=== PATIENT | female | born 1965 | race Caucasian/White ===

== ENCOUNTER 2020-10-01 15:35 | Outpatient (CLI) | payer OTHER, SELFPAY | END 2020-10-01 15:36 | disposition home or self-care (01) | LOC: ANHCOVIDVC 15:35 | PROVIDERS: PCP Family Medicine | DX: Z23 Encounter for immunization (principal) | CPT/HCPCS: 0001A; 91300 ==

== ENCOUNTER 2020-10-22 15:13 | Outpatient (CLI) | payer OTHER, SELFPAY | END 2020-10-22 15:14 | disposition home or self-care (01) | LOC: ANHCOVIDVC 15:13 | PROVIDERS: PCP Family Medicine | DX: Z23 Encounter for immunization (principal) | CPT/HCPCS: 0002A; 91300 ==

== ENCOUNTER → 2020-11-15 02:21 | Outpatient (CLI) | payer OTHER, SELFPAY ==
[2020-11-15 19:11] LABS: SARS-CoV-2 RNA PCR Negative
== END ==
PROVIDERS: PCP Family Medicine; Visit Provider Internal Medicine Gastroenterology
DX: Z01.812 Encounter for preprocedural laboratory examination (principal); Z20.822 Contact with and (suspected) exposure to COVID-19
CPT/HCPCS: C9803; U0003; U0005

== ENCOUNTER 2020-11-18 02:01 | Day surgery (SDC) | payer OTHER, SELFPAY ==
[2020-11-06 13:56] VITALS: BMI 25.3
[2020-11-18 10:11] VITALS: BP 127/87; PULSE 89; RESP 20; TEMP 36.2; O2SAT 100; BMI 25.4
[2020-11-18] MEDS: LACTATED RINGERS 1,000 ML 150 ML IV CONT (10:26)
--- NOTE | 2020-11-18 10:39 | WPDANESEPPF ---
Anes - Initial Pre Proc Eval Procedure: Operation Date: 11/18/20 11:30 Proposed Procedures p Screening Colonoscopy - Antonio Hernandes MD Date/Time: 11/18/20 10:39 Surgeon: Antonio Hernandes MD Pre Op Diagnosis: neoplasm screening Patient Data Age: 55 Gender: F Height: 5 ft 4 in Weight: 67.3 kg Last Vital Signs Temp 36.2 C L 11/18/20 10:11 Pulse 89 11/18/20 10:11 Resp 20 11/18/20 10:11 BP 127/87 11/18/20 10:11 Pulse Ox 100 11/18/20 10:11 Allergies Allergy/AdvReac Type Severity Reaction Status Date / Time metronidazole Allergy Unknown Vomiting Verified 11/18/20 10:23 Penicillins Allergy Rash Verified 11/18/20 10:23 Home Medications Medication Instructions Recorded Confirmed Type bupropion HCl 150 mg PO DAILY 11/06/20 11/06/20 History indapamide 1.25 mg PO HS 11/06/20 11/06/20 History lactobacillus combination no.4 3,000 mmu cells PO DAILY 11/06/20 11/06/20 History [Probiotic] magnesium 500 mg PO DAILY 11/06/20 11/06/20 History metoprolol succinate 200 mg PO DAILY 11/06/20 11/06/20 History omega 3-nof-zty-fish oil [Fish Oil] 2 cap PO DAILY 11/06/20 11/06/20 History rosuvastatin 20 mg PO HS 11/06/20 11/06/20 History Patient hx anesthesia problems: none Family hx anesthesia problems: none PMFSH Past Medical History Medical History Anxiety Chronic bronchitis Hyperlipidemia Hypertension Tobacco abuse Social History Social History Smoking packs per day: 0.5 Smoking cigarettes per day: 10.0 Years smoked: 38 Smoking pack-years: 19.00 Smoking status: Current every day smoker Tobacco type: cigarettes and e-cigarettes/vaping Alcohol intake: current Drinks per week: 80 Alcohol use details: beer Living arrangements: with friend(s) Spiritual care concerns: No Anes - Eval Final PreProcedure Day of Procedure 11/18/20 10:39 Patient weight: normal Heart: regular rate and rhythm Lungs: decreased breath sounds Airway: Mallampati scale class II Neurological: alert and oriented Last oral intake: >/= 8 hours ASA classification: III Emergent: no Anesthetic plan: proceed Anesthesia type and monitoring: general GIVS and standard monitoring Informed Consent: The patient's anesthetic plan and its attendant risks and benefits were discussed with the patient/family/POA. Questions were solicited and answers provided to the satisfaction of the patient/family/POA.
--- NOTE | 2020-11-18 10:40 | PM.HPGS ---
History of Present Illness History of Present Illness Consent: Risks, benefits, and alternatives have been discussed and questions answered. Patient agrees to proceed with procedure. Chief complaint: neoplasm screening Narrative: Shital Lam is a 55 year old female here with first screening colonoscopy Review of Systems Constitutional: Constitutional: Denies headache(s) and Denies weakness Eyes: Eyes: Denies blurry vision ENT: Reports Normal hearing present, Denies headache(s) and Denies neck pain Cardiovascular: Cardiovascular: Denies chest pain and Denies dyspnea Respiratory: Respiratory: Denies dyspnea Gastrointestinal: Gastrointestinal: Reports no additional gastrointestinal complaints Genitourinary: Genitourinary: Denies dysuria Musculoskeletal: Musculoskeletal: Denies neck pain Integumentary/Breasts: Skin/Breast: Denies dry skin Neurologic: Reports Normal hearing present, Denies headache(s) and Denies weakness Psychiatric: Psychiatric: Denies anxiety Endocrine: Endocrine: Denies change in body appearance Hematologic/Lymphatic: Hematologic/Lymphatic: Denies easy bleeding Allergic/Immunologic: Allergic/Immunologic: Denies urticaria PMF Past Medical History Medical History (Updated 11/18/20 @ 10:40 by Antonio Hernandes MD) Anxiety Chronic bronchitis Colon cancer screening Hyperlipidemia Hypertension Tobacco abuse Social History Social History Smoking packs per day: 0.5 Smoking cigarettes per day: 10.0 Years smoked: 38 Smoking pack-years: 19.00 Smoking status: Current every day smoker Tobacco type: cigarettes and e-cigarettes/vaping Alcohol intake: current Drinks per week: 80 Alcohol use details: beer Living arrangements: with friend(s) Spiritual care concerns: No Meds Home Medications and Allergies Home Medications Medication Instructions Recorded Confirmed Type bupropion HCl 150 mg PO DAILY 11/06/20 11/06/20 History indapamide 1.25 mg PO HS 11/06/20 11/06/20 History lactobacillus combination no.4 3,000 mmu cells PO DAILY 11/06/20 11/06/20 History [Probiotic] magnesium 500 mg PO DAILY 11/06/20 11/06/20 History metoprolol succinate 200 mg PO DAILY 11/06/20 11/06/20 History omega 8-axi-nul-fish oil [Fish Oil] 2 cap PO DAILY 11/06/20 11/06/20 History rosuvastatin 20 mg PO HS 11/06/20 11/06/20 History Allergies Allergy/AdvReac Type Severity Reaction Status Date / Time metronidazole Allergy Unknown Vomiting Verified 11/18/20 10:23 Penicillins Allergy Rash Verified 11/18/20 10:23 Vital Signs Vital Signs - 24 hr 11/18/20 10:11 Temperature 97.2 F L Pulse Rate 89 Respiratory Rate 20 Blood Pressure 127/87 Pulse Oximetry 100 Exam Const: General: comfortable and no acute distress HENMT: General nose exam: Normal nares present Eyes: General: appearance normal, both eyes and all related structures Neck: Neck: no JVD Resp: Auscultation: clear to auscultation bilaterally Cardio: Rate: regular rate Rhythm: regular rhythm GI: Inspection: non-distended GI Palp: Yes Soft to palpation Skin: General skin exam: normal color Neuro: General: gait normal Speech: normal speech Extrem: General: normal to inspection Psych: Mental Status: mental status grossly normal Assessment and Plan Assessment and plan (1) Colon cancer screening: Code(s): Z12.11 - Encounter for screening for malignant neoplasm of colon Status: Acute Assessment and Plan: colonoscopy
[2020-11-18 11:00] VITALS: BP 123/90; PULSE 79; RESP 19; O2SAT 100
[2020-11-18 11:10] VITALS: BP 146/97; PULSE 73; RESP 19; O2SAT 100
[2020-11-18 11:20] VITALS: BP 152/88; PULSE 66; RESP 17; O2SAT 100
== END 2020-11-18 11:28 | disposition home or self-care (01) ==
PROVIDERS: PCP Family Medicine; Visit Provider Internal Medicine Gastroenterology
PROC: 0DJD8ZZ Inspection of Lower Intestinal Tract, Via Natural or Artificial Opening Endoscopic (ICD-10-PCS; CPT 45378; principal; 2020-11-18 11:30)
DX: Z12.11 Encounter for screening for malignant neoplasm of colon (principal); D12.3 Benign neoplasm of transverse colon; F41.9 Anxiety disorder, unspecified; E78.5 Hyperlipidemia, unspecified; I10 Essential (primary) hypertension; F17.290 Nicotine dependence, other tobacco product, uncomplicated; K57.30 Diverticulosis of large intestine without perforation or abscess without bleeding; K64.8 Other hemorrhoids
CPT/HCPCS: 45385; 88305; C9803; J2001; J2704; J7120; U0003; U0005